=== PATIENT | female | born 1975 ===

== ENCOUNTER 2024-05-24 08:34 | Outpatient (CLI) | payer OTHER ==
[~2024-05-24 08:34] MED LIST: OSEL75CA PO; TRAMADOL HCL50 MG PO
== END 2024-05-24 08:40 | disposition home or self-care (01) ==
LOC: SONOGRAMA 08:34
PROVIDERS: ATTEND Physical Medicine & Rehabilitation Hospice and Palliative Medicine
DX: R22.32 Localized swelling, mass and lump, left upper limb (principal); M79.629 Pain in unspecified upper arm